=== PATIENT | female | born 1995 ===

== ENCOUNTER 2019-09-04 12:18 | Inpatient (IN) ==
[~2019-09-04 12:18] MED LIST: CITRIC ACID/SODIUM CITRATE 15 ML UDC PO SCH; cefOXitin 2,000 MG in DEXTROSE 5% 50 ML IV SCH
[2019-09-04 14:54] LABS: Basophils # (auto) 0.01 K/uL (0-0.2); Basophils % (auto) 0.1 %; Eosinophils % (auto) 1.2 %; Hematocrit (blood only) 39.1 % (37-47); Immature Granulocytes # (auto) 0.04 K/uL (0.00-0.02); Immature Granulocytes % (auto) 0.5 %; Lymphocytes # (auto) 2.57 K/uL (1.2-3.4); Mean Corpuscular Hemoglobin 29.5 pg (25-34); Mean Corpuscular Volume 88.7 fL (80-100); Mean Platelet Volume 13.1 fL (7.4-10.4); Monocytes # (auto) 0.43 K/uL (0.11-0.59); Monocytes % (auto) 5.4 %; Neutrophils # (auto) 4.88 K/uL (1.4-6.5); Neutrophils % (auto) 60.8 %; Platelet Count 219 K/uL (130-400); RDW Coefficient of Variation 14.6 % (11.5-14.5); RDW Standard Deviation 47.2 fL (36.4-46.3); Red Blood Count 4.41 M/uL (4.2-5.4); White Blood Count 8.03 K/uL (4.8-10.8)
[2019-09-04 14:59] LABS: Mean Corpuscular Hgb Conc 33.2 g/dL (32-36)
[2019-09-04] MEDS ORDERED: PNEUMOCOCCAL Polysaccharide Vaccine 25mcg/0.5mL vial/Syr IM ONE (15:00)
[2019-09-04] MEDS ORDERED: OXYTOCIN 10 UNITS/ML VIAL ONE ×6 (15:54→17:16)
[2019-09-04] MEDS ORDERED: ONDANSETRON INJ 2 MG/ML 2 ML VIAL ONE (15:54)
[2019-09-04] MEDS ORDERED: PHENYLEPHRINE HCL 10 MG/ML VIAL ONE (15:54)
[2019-09-04] MEDS ORDERED: METOCLOPRAMIDE HCL INJ 5 MG/ML 2 ML VIAL ONE (15:54)
[2019-09-04] MEDS ORDERED: ePHEDrine sulfate 50 MG/ML AMP ONE (15:54)
[2019-09-04] MEDS ORDERED: fentaNYL citrate 100 MCG/2 ML VIAL ONE ×2 (15:55→17:17)
[2019-09-04] MEDS ORDERED: MoRPHine SULFATE PF 1 MG/ML 10 ML AMP/VIAL ONE (15:55)
--- NOTE | 2019-09-04 16:03 | Anesthesiology Consultation ---
Date of Service September 04, 2019 Assessment & Plan Chart Review Chart Review: Acceptable Risk for Surgery Consults Requested none ASA ASA2 Proposed Anesthesia Anesthesia Type: Spinal Risk / Benefits Reviewed With: PT / POA / Parent / Guardian, Accepts Plan and Informed Consent Obtained History Surgery Operation Date: 09/04/19 16:00 Proposed Procedures p Section in LD(Bilateral) - Silvio Urbina MD Height/Weight Height: 5 ft 2.6 in Weight: 87.736 kg Allergies Allergy/AdvReac Type Severity Reaction Status Date / Time No Known Allergies Allergy Unverified 01/22/18 09:39 Medications Home Medications Medication Instructions Recorded Confirmed Last Taken vit 10-iron fum-folic 1 tab PO DAILY 09/04/19 09/04/19 09/03/19 20:00 NPO Date Last Intake of Fluids: 09/04/19 Time Last Intake of Fluids: 09:00 Date Last Intake of Solids: 09/03/19 Time Last Intake of Solids: 22:00 Past Medical History Medical History No known health problems Rash and nonspecific skin eruption (Inactive) Still being worked up by Dr. Urbina. Awaiting lab results. Exercise / Class Metabolic Activity II 4-5 Yardwork/Stairs/Walk up hill Past Surgical History Surgical History History of 2013 Past Anesthesia History No Hx of Anesthesia Complications and No Family Hx of Anesthesia Complications History of PONV No Hx of PONV and No Hx of Motion Sickness Social History Smoking Status: Never smoker Hx Alcohol Use: No Hx Substance Use: No Physical Exam Vital Signs Last Vital Signs Temp 36.8 C 09/04/19 12:32 Pulse 67 09/04/19 14:22 Resp 20 09/04/19 12:32 BP 137/94 09/04/19 14:22 only speaks scottish ENMT Mouth: no TMJ abnormality Thyromental Distance: > or= 3.5 Finger Breadths Mallampati Class: II Neck normal visual inspection and trachea midline; neck extension not limited Respiratory normal respiratory effort Auscultation: lungs clear to auscultation bilaterally Cardiovascular Rate/Rhythm: regular rate and regular rhythm Heart Sounds: no murmur Musculoskeletal Spine: normal cervical ROM Extremities: full ROM of extremities Neurologic moves all extremities Psychiatric Orientation: alert and oriented x 3 Testing Laboratory Results 09/04/19 14:41 Blood Type O Positive 09/04/19 14:41 Antibody Screen NEGATIVE 09/04/19 14:41
[2019-09-04] MEDS ORDERED: ePHEDrine sulfate 50 MG/ML AMP IV PRN (16:40)
[2019-09-04] MEDS ORDERED: NALOXONE HCL 0.4 MG/1 ML VIAL/CARP IV PRN (16:40)
[2019-09-04] MEDS ORDERED: PROMETHAZINE HCL 25 MG in SODIUM CHLORIDE 0.9% 50 ML IV PRN (16:40)
[2019-09-04] MEDS ORDERED: DiphenhydrAMINE HCL 50 MG/ML VIAL IV PRN (16:40)
[2019-09-04] MEDS ORDERED: NALOXONE HCL 1 MG in SODIUM CHLORIDE 0.9% 1000ML 1,000 ML IV PRN (16:40)
[2019-09-04] MEDS ORDERED: MoRPHine SULFATE PF 1 MG/ML 10 ML AMP/VIAL INT SPINAL ONE (16:40)
[2019-09-04] MEDS ORDERED: NALOXONE HCL 0.08 MG in SYRINGE 1.8 ML IV PRN (16:40)
[2019-09-04] MEDS ORDERED: NALBUPHINE HCL INJ 10 MG/ML AMP IV PRN (16:40)
[2019-09-04] MEDS ORDERED: METOCLOPRAMIDE HCL 20 MG in SODIUM CHLORIDE 0.9% 50 ML IV PRN (16:40)
[2019-09-04] MEDS ORDERED: MEPERIDINE HCL 25 MG/ML CARP/VIAL IV PRN (16:40)
[2019-09-04] MEDS ORDERED: LACTATED RINGER'S 500 ML IV PRN (16:40)
[2019-09-04] MEDS ORDERED: ONDANSETRON INJ 2 MG/ML 2 ML VIAL IV PRN (16:40)
[2019-09-04] MEDS ORDERED: NO NARCOTICS OR SEDATIVES SCH (16:45)
[2019-09-04] MEDS ORDERED: SODIUM CHLORIDE 0.9% 1000ML 1,000 ML IV SCH (16:45)
[2019-09-04] MEDS ORDERED: LIDOCAINE/EPINEPHRINE 2% 1:200,000 20 ML SDV ONE (16:47)
[2019-09-04] MEDS ORDERED: PHENYLEPHRINE 100MCG/ML 5ML SYR ONE (16:51)
[2019-09-04] MEDS ORDERED: OXYTOCIN 10 UNITS/ML VIAL IM ONE (17:02)
[2019-09-04] MEDS ORDERED: KETOROLAC 30 MG/ML VIAL ONE (17:14)
[2019-09-04] MEDS ORDERED: DiphenhydrAMINE HCL 50 MG/ML VIAL ONE (17:41)
--- NOTE | 2019-09-04 17:59 | Post Operative Brief Note ---
Immediate Post Op Note v1 Date of Surgery September 04, 2019 Pre & Post Diagnosis Operation Date: 09/04/19 16:00 Pre-Op Diagnosis: Elevated Blood Pressure;Active Labor Post-Op Diagnosis: Same;Delivery of a live female child at 1645 I identified the patient and participated in the time-out.: Yes Procedure Operation Date: 09/04/19 16:00 Actual Procedures p Section in LD(Bilateral) - Silvio Urbina MD Surgeon Silvio Urbina MD Press Tender Dr Ford Estimated Blood Loss 1,000 Findings Consistent with Post-Op Diagnosis omental adhesions Fluids 2000 ml Specimens placenta bilateral portion of both tubes Drains Lala Catheter Anesthesia Type Spinal Complications none Disposition Accompanied Patient To Recovery: No Disposition: Recovery Room
[2019-09-04] MEDS ORDERED: HYDROCORTISONE ACETATE 25 MG SUPP PR PRN (18:00)
[2019-09-04] MEDS ORDERED: BENZOCAINE 20% AER SPR 82.5 GM CAN EXT PRN (18:00)
[2019-09-04] MEDS ORDERED: DIPHTHERIA/TETANUS/PERTUSSIS 0.5 ML SYR/VIAL IM ONE (18:00)
[2019-09-04] MEDS ORDERED: SENNA 8.6 MG TAB PO PRN (18:00)
[2019-09-04] MEDS ORDERED: SUPERCREAM 0.870% 15 GM JAR EXT PRN (18:00)
[2019-09-04] MEDS ORDERED: MAGNESIUM HYDROXIDE SUSP 30 ML UDC PO PRN (18:00)
--- NOTE | 2019-09-04 18:22 | Anesthesiology Progress Note ---
Date of Service September 04, 2019 Anesthesia Post Procedure Vital Signs Vital Signs: Temp Pulse Resp BP Pulse Ox 09/04/19 18:20 66 136/65 09/04/19 18:17 80 100 09/04/19 18:14 72 89 L 09/04/19 18:12 72 100 09/04/19 18:07 79 99/65 L 100 09/04/19 18:02 83 100 09/04/19 14:22 67 137/94 09/04/19 14:13 63 118/70 09/04/19 14:03 63 125/75 09/04/19 13:53 67 137/83 09/04/19 13:44 72 125/83 09/04/19 13:33 70 129/80 09/04/19 13:24 76 116/86 09/04/19 13:13 70 124/83 09/04/19 13:03 71 136/86 09/04/19 12:53 67 141/84 H 09/04/19 12:43 69 137/85 09/04/19 12:36 75 129/92 09/04/19 12:32 36.8 C 75 20 129/92 Transfer of Care Handoff Completed per policy Notes Mental Status: alert / awake / arousable and participated in evaluation Nausea / Vomiting: adequately controlled Pain: adequately controlled Airway Patency, RR, SpO2: stable & adequate BP & HR: stable & adequate Hydration State: stable & adequate Neuraxial Anesthesia: was administered and sensory block is resolving Anesthetic Complications: no major complications apparent and Pt Satisfied with anesthetic care
[2019-09-04] MEDS ORDERED: OXYTOCIN 20 UNITS in LACTATED RINGER'S 1,000 ML IV SCH (19:00)
[2019-09-04] MEDS: KETOROLAC 30 MG/ML VIAL IV PRN (19:21)
[2019-09-04] MEDS: MoRPHine SULFATE 2 MG/ML CARP IV PRN (20:34)
[2019-09-04] MEDS: DOCUSATE SODIUM 100 MG CAP PO SCH (21:22)
[2019-09-04] MEDS: SIMETHICONE 80 MG CHEW PO SCH (21:22)
[2019-09-05] MEDS: MoRPHine SULFATE 2 MG/ML CARP IV PRN (00:42)
--- NOTE | 2019-09-05 01:20 | Operative Report (OR) ---
DATE OF OPERATION: 09/04/2019 PROCEDURE: Repeat low segment section and bilateral tubal ligation. INDICATIONS FOR SURGERY: Elevated blood pressure, labor. PREOPERATIVE DIAGNOSES: Toxemia, active labor, desire for permanent sterilization. POSTOPERATIVE DIAGNOSES: Toxemia, active labor, desire for permanent sterilization. Large amount of omental adhesions to the anterior abdominal wall and lower uterine segment. SURGEON: Dr. Urbina. LAP REGULATOR: Dr. Ford. ESTIMATED BLOOD LOSS: 600 mL. ANESTHESIA: Spinal. OPERATIVE FINDINGS AND PROCEDURE: The patient was brought to the OR table, correctly identified by armband and conversation. Spinal anesthesia was administered. She was positioned on the OR table. Compression stockings were applied. Lala catheter was inserted. Lower abdomen was painted with an alcohol based sterilizing solution. Following this, the level of the anesthesia was checked and found to be adequate. A midline scar was excised and then hemostasis was secured by electrocauterization. Incision was carried down to the fascia with sharp dissection. The fascia was incised in the midline, then cut down to the pelvic brim and up towards the umbilicus with the scissors. Recti muscles were . Peritoneum was carefully raised and entered. There is a lot of dense omental adhesions both to the lower uterine segment and to the undersurface of the incision. We had to systematically take these down to expose the lower uterine segment. This took a fair amount of time and then once we exposed the lower uterine segment, we made an incision above the vesicouterine fold, scored the lower uterine segment with a knife and then entered with the scissors. Clear amniotic fluid was obtained at this time. Vectis retractor was applied to the head and with fundal pressure, live female was delivered. was suctioned through the mouth and the nose. Cord was clamped, cut and the infant was attended to by the drone software development engineer, Dr. Bunch who was scrubbed and present at the time of delivery. Cord blood was taken. Placenta was removed manually. Some additional adhesions were taken down. The uterus was brought out through the incision. The lower uterine segment was approximated in 2 layers, a continuous of chromic layer approximated the myometrial layer. Then the fascial layer over that was approximated with continuous Vicryl and about 3 interrupted sutures of Vicryl was used to complete the approximation and complete hemostasis. We then used a 3-0 chromic to peritonealize the lower uterine segment as best we could and proceeded to do bilateral tubal ligation. Each tube was identified, grasped with a [place], plain suture was used to ligate the tube proximally and distally, then the mid portion was injected with local with epinephrine. Two leaves of the broad ligament were dissected, was , and the portion of the tube was excised between the two broad ligament leaves and then we buried the proximal stump of the tube, exteriorize with distal and approximated the broad leaf of the front to back with about 3 interrupted sutures. This was done for both the right and left fallopian tubes. Each fallopian tube have ensured of its identification by following out to the fimbriated end. The pelvis was then cleansed of all blood clots and debris. Uterus, tubes, and ovaries were reinserted into the abdominal cavity. We did a careful anatomical approximation of the anterior abdominal wall. Peritoneum was closed with a mattress suture of chromic catgut. Recti muscles were approximated with PDS, one anchored with a stitch below the fascia at the bottom of the defect, and one anchored with a stitch below the fascia at the top of the defect and then we approximated the fascial edges with a running PDS suture from the top down to the middle, from the bottom up to the middle and then tied to each other with a knot under the fascia. Then we did a running plain, approximated the deep fascial layer and then we did interrupted plain to approximate the skin edges. We then completed approximating the skin edges with staple clips. Following this, hemostasis was good. The patient tolerated the procedure well and left the OR in good condition. I attest to the content of the Intraoperative Record and any orders documented therein. Any exceptions are noted below. DIANED
[2019-09-05] MEDS: LACTATED RINGER'S 1,000 ML IV SCH ×2 (03:26→08:06)
[2019-09-05] MEDS: KETOROLAC 30 MG/ML VIAL IV PRN ×3 (05:13→16:30)
[2019-09-05 06:53] LABS: Basophils # (auto) 0.01 K/uL (0-0.2); Basophils % (auto) 0.1 %; Eosinophils # (auto) 0.03 K/uL (0-0.5); Eosinophils % (auto) 0.4 %; Hematocrit (blood only) 29.1 % (37-47); Hemoglobin 9.4 g/dL (12.0-16.0); Immature Granulocytes # (auto) 0.03 K/uL (0.00-0.02); Immature Granulocytes % (auto) 0.4 %; Lymphocytes # (auto) 1.74 K/uL (1.2-3.4); Lymphocytes % (auto) 20.5 %; Mean Corpuscular Hemoglobin 28.7 pg (25-34); Mean Corpuscular Hgb Conc 32.3 g/dL (32-36); Mean Corpuscular Volume 88.7 fL (80-100); Mean Platelet Volume 12.9 fL (7.4-10.4); Monocytes # (auto) 0.54 K/uL (0.11-0.59); Monocytes % (auto) 6.4 %; Neutrophils # (auto) 6.12 K/uL (1.4-6.5); Neutrophils % (auto) 72.2 %; Platelet Count 187 K/uL (130-400); RDW Coefficient of Variation 14.8 % (11.5-14.5); RDW Standard Deviation 47.7 fL (36.4-46.3); Red Blood Count 3.28 M/uL (4.2-5.4); White Blood Count 8.47 K/uL (4.8-10.8)
[2019-09-05] MEDS ORDERED: LACTATED RINGER'S 500 ML IV ONE (06:58)
[2019-09-05] MEDS: DOCUSATE SODIUM 100 MG CAP PO SCH ×2 (08:09→20:47)
[2019-09-05] MEDS: SIMETHICONE 80 MG CHEW PO SCH ×4 (08:09→20:46)
[2019-09-05] MEDS: PRENATAL VITAMIN 1 TAB PO SCH (08:09)
[2019-09-05] MEDS: FERROUS SULFATE 325 MG TAB PO SCH (08:09)
[2019-09-05] MEDS ORDERED: DC INTRASPINAL MORPHINE ONE (10:42)
[2019-09-05] MEDS ORDERED: PROMETHAZINE HCL 25 MG in SODIUM CHLORIDE 0.9% 50 ML IV PRN (10:43)
[2019-09-05] MEDS ORDERED: DiphenhydrAMINE HCL 50 MG/ML VIAL IV PRN (10:43)
[2019-09-05] MEDS ORDERED: ONDANSETRON INJ 2 MG/ML 2 ML VIAL IV PRN (10:43)
[2019-09-05] MEDS ORDERED: ZOLPIDEM TARTRATE 5 MG TAB PO PRN (10:43)
[2019-09-05] MEDS ORDERED: MEPERIDINE HCL 50 MG/ML CARP IV PRN (10:43)
--- NOTE | 2019-09-05 12:19 | Obstetrical Progress Note ---
Date of Service September 05, 2019 Assessment & Plan Admission and Anticipated Discharge Date Admission Date: September 04, 2019 Physical Exam Physical Exam: abdomen soft and non tender bowel sounds hypoactive incision is clean and dry no calf tenderness vaginal bleeding scant 9.4 Results & Data ([facility]) Vital Signs (Past 12 Hours) Vital Signs Temp Pulse Pulse Resp BP Pulse Ox 09/05/19 11:30 37.0 C 69 18 115/76 98 09/05/19 09:20 18 98 09/05/19 08:00 37.1 C 72 18 120/81 97 09/05/19 07:15 16 97 09/05/19 05:50 15 98 09/05/19 05:10 37.3 C 75 16 135/87 97 09/05/19 04:50 15 98 09/05/19 03:50 14 97 09/05/19 02:50 16 98 09/05/19 01:50 16 97 09/05/19 00:50 16 97
[2019-09-05] MEDS ORDERED: bisacodyL 5 MG TABEC PO SCH (20:00)
[2019-09-05] MEDS: OXYCODONE/ACETAMINOPHEN 5mg/325mg TAB PO PRN (20:48)
[2019-09-05] MEDS: IBUPROFEN 600 MG TAB PO PRN (20:49)
[2019-09-06] MEDS: OXYCODONE/ACETAMINOPHEN 5mg/325mg TAB PO PRN ×5 (04:15→23:18)
[2019-09-06] MEDS: IBUPROFEN 600 MG TAB PO PRN ×5 (04:17→23:17)
[2019-09-06 06:38] LABS: Hemoglobin 9.1 g/dL (12.0-16.0)
[2019-09-06] MEDS: DOCUSATE SODIUM 100 MG CAP PO SCH ×2 (08:35→20:15)
[2019-09-06] MEDS: FERROUS SULFATE 325 MG TAB PO SCH (08:35)
[2019-09-06] MEDS: PRENATAL VITAMIN 1 TAB PO SCH (08:35)
[2019-09-06] MEDS: SIMETHICONE 80 MG CHEW PO SCH ×4 (08:38→20:15)
--- NOTE | 2019-09-06 09:13 | Obstetrical Progress Note ---
Date of Service September 06, 2019 Assessment & Plan Admission and Anticipated Discharge Date Admission Date: September 04, 2019 Physical Exam Physical Exam: abdomen soft and non tender incision is clean and dry no calf tenderness ambulating well vaginal bleeding scant hgb 9.1 Results & Data ([facility]) Vital Signs (Past 12 Hours) Vital Signs Temp Pulse Resp BP Pulse Ox 09/06/19 08:00 36.7 C 69 18 126/80 98 09/06/19 00:20 36.9 C 82 18 127/85
[2019-09-06] MEDS ORDERED: bisacodyL 10 MG SUPP PR PRN (18:01)
[2019-09-07] MEDS: IBUPROFEN 600 MG TAB PO PRN (07:56)
[2019-09-07] MEDS: SIMETHICONE 80 MG CHEW PO SCH (07:57)
[2019-09-07] MEDS: OXYCODONE/ACETAMINOPHEN 5mg/325mg TAB PO PRN (07:57)
[2019-09-07] MEDS: FERROUS SULFATE 325 MG TAB PO SCH (07:57)
[2019-09-07] MEDS: PRENATAL VITAMIN 1 TAB PO SCH (07:58)
[2019-09-07] MEDS: DOCUSATE SODIUM 100 MG CAP PO SCH (07:58)
--- NOTE | 2019-09-07 10:16 | Obstetrical Progress Note ---
Date of Service September 07, 2019 Assessment & Plan Admission and Anticipated Discharge Date Admission Date: September 04, 2019 Physical Exam Physical Exam: abdomen soft and non tender incision is clean and dry no calf tenderness ambulating well vaginal bleeding scant hgb 9.1 Results & Data ([facility]) Vital Signs (Past 12 Hours) Vital Signs Temp Pulse Resp BP Pulse Ox 09/07/19 08:00 36.9 C 88 16 116/80 100 09/06/19 23:20 36.7 C 71 20 126/85 97
--- NOTE | 2019-09-07 10:37 | Discharge Summary (DS) ---
The patient had been followed in my office for care and delivery. She has had 2 prior sections, first one in [facility]. She did well up until about 37 weeks when she began to develop hypertension. Onset was fairly abrupt and she deteriorated over a period of just a day or so. Two documented diastolics in the office; first one was 95, second one was 100. She also went from 1+ protein to 2+ protein and this was over just a 2-3 day period. Due to her acute rise in blood pressure, she was admitted for repeat section at about 38 weeks. On day of admission, she was taken to the OR. She was given prophylactic antibiotics. She underwent repeat low segment section. There was a fair amount of adhesions noted at that time and she also underwent a bilateral tubal ligation at the patient's request. Postoperatively, she did well. She remained afebrile. It took about 24 hours for her bowel sounds to return. Her preoperative hemoglobin was 13.0. Postoperatively, hemoglobin fell to 9.1. She was asymptomatic, ambulating well, eating well. No symptoms of dizziness and pain was well controlled with a combination of Percocet and Motrin. Medicines had been called into the pharmacy and the patient was discharged with instructions to call the office for removal of oliver and for any postoperative problems, which were listed in her discharge instructions.
== END 2019-09-07 13:15 | disposition home or self-care (01) | DRG 785 ==
LOC: OPB 12:18 → 4S2 12:22